=== PATIENT | male | born 1945 | race Caucasian/White ===

== ENCOUNTER 2020-05-19 07:11 | Outpatient (NON) | payer MEDICARE, OTHER, SELFPAY ==
[2020-05-19 23:09] LABS: SARS-CoV-2 RNA PCR Negative
== END 2020-05-19 07:12 ==
PROVIDERS: PCP Family Medicine; Visit Provider Family Medicine
DX: R53.83 Other fatigue (principal); Z20.828 Contact with and (suspected) exposure to other viral communicable diseases
CPT/HCPCS: 87635; C9803; U0003

== ENCOUNTER → 2020-05-24 11:34 | Outpatient (CLI) | payer MEDICARE, OTHER, SELFPAY ==
--- NOTE | ~2020-05-24 | XR_ITS ---
EXAMINATION: XR chest 2V EXAM DATE: 05/24/2020 12:12 INDICATION: Upper abdominal melanoma. TECHNIQUE: Frontal and lateral projections of the chest obtained and reviewed. Comparison is made to prior examination from 09/30/2012. FINDINGS: Sternotomy wires are present without findings to suggest sternal dehiscence. The lungs are clear. There are no pleural effusions. Borderline cardiomegaly. There is no pneumothorax suspected. The bones and soft tissues are unremarkable. IMPRESSION: Borderline cardiomegaly. Clear lungs. Reviewed, dictated and finalized at location A.
== END ==
PROVIDERS: PCP Family Medicine; Visit Provider Surgery
DX: C43.59 Malignant melanoma of other part of trunk (principal)
CPT/HCPCS: 71046

== ENCOUNTER → 2021-09-24 00:44 | Outpatient (CLI) | payer MEDICARE, OTHER, SELFPAY ==
[2021-09-25 10:58] LABS: SARS-CoV-2 RNA PCR Negative
== END ==
PROVIDERS: PCP Family Medicine; Visit Provider Family Medicine
DX: J02.9 Acute pharyngitis, unspecified (principal); Z20.822 Contact with and (suspected) exposure to COVID-19
CPT/HCPCS: C9803; U0003; U0005

== ENCOUNTER 2021-12-26 17:11 | Emergency (ER) | payer MEDICARE, OTHER, SELFPAY ==
--- NOTE | 2021-12-26 17:17 | ED.CHESTPAIN ---
HPI - Chest Pain General Chief Complaint: Chest Pain Stated Complaint: chest pain Time Seen by Provider: 12/26/21 17:30 Source: patient and RN notes reviewed Mode of arrival: ambulatory Limitations: no limitations History of Present Illness HPI narrative: 76-year-old male presents with midsternal chest pain that started today. He reports he has had a cold for several days and has been coughing. He occasionally feels short of breath. 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 He reports he had 5 stents placed last week, and is scheduled to be cardioverted for atrial fibrillation next week. Reports he has nitroglycerin for chest pain which he has not taken because this is not his typical chest pain. Patient feels that his chest pain is related to his upper respiratory infection and requests a breathing treatment. However patient is unable to use albuterol due to his recent stent placement. MD complaint: chest pain Related Data Home Medications Medication Instructions Recorded Confirmed aspirin 81 mg tablet,delayed 81 mg PO DAILY 07/21/19 10/17/21 release esomeprazole magnesium 20 mg 20 mg PO DAILY 07/21/19 10/17/21 capsule,delayed release multivitamin with minerals 1 tablet PO DAILY 07/21/19 10/17/21 olopatadine 0.1 % eye drops 1 drop EACH EYE BID 07/21/19 10/17/21 ranibizumab 0.3 mg/0.05 mL 0.3 mg INTRAVITRE Q28D 07/21/19 10/17/21 intravitreal solution for injection ranolazine 1,000 mg 1,000 mg PO Q12H 07/21/19 10/17/21 tablet,extended release,12 hr ezetimibe 10 mg tablet 10 mg PO DAILY 11/09/19 10/17/21 montelukast 10 mg tablet 10 mg PO QPM 11/09/19 10/17/21 alirocumab 75 mg/mL subcutaneous 75 mg SUBCUT . Q 2 weeks ml 10/12/20 10/17/21 pen injector cholecalciferol (vitamin D3) 125 5,000 unit PO DAILY tablet 10/12/20 10/17/21 mcg (5,000 unit) tablet ferrous gluconate 225 mg (27 mg 225 mg PO DAILY 10/12/20 10/17/21 iron) tablet fluticasone furoate 200 1 inh INHALATION DAILY 10/12/20 10/17/21 mcg-vilanterol 25 mcg/dose inhalation powder folic acid 400 mcg tablet 0.4 mg PO DAILY 10/12/20 10/17/21 insulin glargine 100 unit/mL (3 60 unit SUB-Q DAILY ml 10/12/20 10/17/21 mL) subcutaneous pen irbesartan 300 mg tablet 300 mg PO DAILY 10/12/20 10/17/21 furosemide 20 mg tablet 20 mg PO BID 02/12/21 10/17/21 isosorbide mononitrate 120 mg 120 mg PO DAILY tablet 02/12/21 10/17/21 tablet,extended release 24 hr metoprolol tartrate 25 mg tablet 12.5 mg PO BID tablet 02/12/21 10/17/21 bimatoprost 0.01 % eye drops 1 drp EACH EYE QPM 05/09/21 10/17/21 doxazosin 1 mg tablet 1 mg PO QHS 05/09/21 10/17/21 fluorouracil 5 % topical solution 1 applic TOPICAL BID 05/09/21 10/17/21 loteprednol etabonate 0.5 % eye 1 drp RIGHT EYE BID 05/09/21 10/17/21 drops,suspension timolol maleate 0.5 % eye drops 1 drp EACH EYE Q12H 05/09/21 10/17/21 dapagliflozin 5 mg tablet 5 mg PO DAILY 10/17/21 10/17/21 apixaban 5 mg tablet 5 mg PO BID 12/18/21 clopidogrel 75 mg tablet 75 mg PO DAILY 12/18/21 Allergies Allergy/AdvReac Type Severity Reaction Status Date / Time Ayncdgg-[id number] Reductase Allergy Unknown Verified 11/09/19 08:56 Inhibitor [[place]-Xum-Saz Reductase Inhibitor] Review of Systems Review of Systems: CONSTITUTIONAL: Reports malaise. Denies chills, sweats, or fever. ENT: Reports rhinorrhea, congestion. Denies sinus pain, otalgia or sore throat. CARDIOVASCULAR: Reports midsternal chest pain. Reports bilateral lower extremity edema RESPIRATORY: Reports cough and dyspnea. All systems reviewed & are unremarkable except as noted in HPI and below PMFSH Past Medical History Medical History (Updated 12/26/21 @ 18:01 by Prabha Gray NP) Actinic keratosis Anemia hemoglobin 11.0 on 05/10/2021 Atrial fibrillation (12/18/21) new onset atrial fibrillation after atherectomy and PCI of the RCA on 12/17/2021. BPH without obstruction/lower u
[2021-12-26 17:22] VITALS: BP 136/56; PULSE 95; RESP 20; TEMP 37.7; O2SAT 95
--- NOTE | 2021-12-26 17:28 | ECG_ITS ---
Measurements Intervals [place] Rate: 86 P: VT: 0 QRS: -38 QRSD: 140 T: 77 QT: 411 QTc: 493 Interpretive Statements ATRIAL FIBRILLATION LEFT AXIS DEVIATION [QRS AXIS < -30] NONSPECIFIC INTRAVENTRICULAR CONDUCTION DELAY ABNORMAL ECG NO PREVIOUS ECG AVAILABLE FOR COMPARISON Electronically Signed On 12-26-2021 18:16:56 CDT by Jaime Case M.D.
--- NOTE | 2021-12-26 17:47 | PC.NURSE ---
1746- Spouse did not want pt to have albuterol d/t recent stent placement, [employer] notified.
== END 2021-12-26 17:56 | disposition short-term general hospital (02) ==
PROVIDERS: Emergency Provider Nurse Practitioner; PCP Family Medicine
DX: R07.9 Chest pain, unspecified (principal); R94.31 Abnormal electrocardiogram [ECG] [EKG]; I48.91 Unspecified atrial fibrillation; N40.0 Benign prostatic hyperplasia without lower urinary tract symptoms; I12.9 Hypertensive chronic kidney disease with stage 1 through stage 4 chronic kidney disease, or unspecified chronic kidney disease; E11.22 Type 2 diabetes mellitus with diabetic chronic kidney disease; N18.32 Chronic kidney disease, stage 3b; Z79.4 Long term (current) use of insulin; K21.9 Gastro-esophageal reflux disease without esophagitis; D50.9 Iron deficiency anemia, unspecified; E78.2 Mixed hyperlipidemia; M19.90 Unspecified osteoarthritis, unspecified site; E66.01 Morbid (severe) obesity due to excess calories; Z68.41 Body mass index [BMI] 40.0-44.9, adult; I25.110 Atherosclerotic heart disease of native coronary artery with unstable angina pectoris; Z79.82 Long term (current) use of aspirin
CPT/HCPCS: 93005; 94640; 99213; G0463

== ENCOUNTER 2023-10-07 07:12 | Outpatient (RCR) | payer MEDICARE, OTHER, SELFPAY | END 2023-10-07 09:00 | disposition home or self-care (01) | LOC: ANHCPREHAB 07:12 | PROVIDERS: PCP Family Medicine | DX: I25.2 Old myocardial infarction (principal) | CPT/HCPCS: 99199; 93798 ==

== ENCOUNTER 2023-10-29 18:58 | Emergency (ER) | payer MEDICARE, OTHER, SELFPAY ==
[2023-10-29 19:22] VITALS: BP 142/66; PULSE 69; RESP 18; TEMP 36.3; O2SAT 99
[2023-10-29 19:23] LABS: Glucose Point of Care 128 mg/dl (65-105)
--- NOTE | 2023-10-29 19:29 | ED.GENADULT ---
HPI - General Adult General Chief complaint: Unspecified Stated complaint: low blood sugar Source: patient Mode of arrival: ambulatory Limitations: no limitations History of Present Illness HPI narrative: 78-year-old male with history of diabetes presented for complaint of low blood sugar at home. He states he changed out his FreeStyle sensor, which subsequently read blood glucose 53. He states that it has not been acting right since changing it out. He ate candy bars and drink some soda but was unable to have more readings. Tried to check BS at home using the finger stick but the was unable to get it to read, and then ran out of test strips. Patient currently denies any feelings of hyperglycemia and is aware of signs and symptoms to monitor. He denies chest pain, heart racing, dizziness, sweating, nausea or confusion. Per pt's monitor he runs 150-200s. Related Data Home Medications Medication Instructions Recorded Confirmed aspirin 81 mg tablet,delayed 81 mg PO DAILY 07/21/19 05/13/23 release (Adult Aspirin Regimen) multivitamin with minerals (Men's 1 tablet PO DAILY 07/21/19 05/13/23 One Daily tablet) olopatadine 0.1 % eye drops 1 drop ophthalmic (eye) BID 07/21/19 05/13/23 (Patanol) ranibizumab 0.3 mg/0.05 mL 0.3 mg intravitreal Q28D 07/21/19 05/13/23 intravitreal solution for injection (Lucentis) ezetimibe 10 mg tablet 10 mg PO DAILY 11/09/19 05/13/23 montelukast 10 mg tablet 10 mg PO QPM 11/09/19 05/13/23 alirocumab 75 mg/mL subcutaneous 75 mg subcut . Q 2 weeks 10/12/20 05/13/23 pen injector (Praluent Pen) cholecalciferol (vitamin D3) 125 5,000 unit PO DAILY 10/12/20 05/13/23 mcg (5,000 unit) tablet ferrous gluconate 225 mg (27 mg 225 mg PO DAILY 10/12/20 05/13/23 iron) tablet (Fergon) folic acid 400 mcg tablet 0.4 mg PO DAILY 10/12/20 05/13/23 insulin glargine 100 unit/mL (3 60 unit subcut DAILY 10/12/20 05/13/23 mL) subcutaneous pen (Basaglar KwikPen U-100 Insulin) isosorbide mononitrate 120 mg 120 mg PO DAILY 02/12/21 05/13/23 tablet,extended release 24 hr metoprolol tartrate 25 mg tablet 12.5 mg PO BID 02/12/21 05/13/23 doxazosin 1 mg tablet 1 mg PO QHS 05/09/21 05/13/23 fluorouracil 5 % topical solution 1 applic topical BID 05/09/21 05/13/23 loteprednol etabonate 0.5 % eye 1 drp RIGHT EYE BID 05/09/21 05/13/23 drops,suspension timolol maleate 0.5 % eye drops 1 drp ophthalmic (eye) Q12H 05/09/21 05/13/23 clopidogrel 75 mg tablet (Plavix) 75 mg PO DAILY 12/18/21 05/13/23 budesonide 0.5 mg/2 mL suspension 0.5 mg inhalation BID 03/18/22 05/13/23 for nebulization formoterol fumarate 20 mcg/2 mL 2 ml inhalation BID 03/18/22 05/13/23 solution for nebulization esomeprazole magnesium 20 mg 40 mg PO DAILY 09/19/22 05/13/23 capsule,delayed release (Nexium 24HR) insulin aspart U-100 100 unit/mL 16 unit subcut TID 09/19/22 05/13/23 (3 mL) subcutaneous pen (Novolog FlexPen U-100 Insulin aspart) amlodipine 2.5 mg tablet 2.5 mg PO DAILY 12/07/22 05/13/23 irbesartan 300 mg tablet 300 mg PO DAILY 05/13/23 05/13/23 ranolazine 1,000 mg 1,000 mg PO Q12H 05/13/23 05/13/23 tablet,extended release,12 hr Allergies Allergy/AdvReac Type Severity Reaction Status Date / Time [place]-BFP-JnO Reductase Allergy Unknown Verified 10/29/23 19:18 Inhibitor [Zvyslyg-Kta-Khj Reductase Inhibitor] Review of Systems Review of Systems: CONSTITUTIONAL: Denies body aches, fever, chills, or sweats. EYES: Denies visual changes, redness, or discharge. ENT: Denies rhinorrhea, congestion, sore throat, or otalgia. CARDIOVASCULAR: Denies chest pain, palpitations, or edema. RESPIRATORY: Denies cough or dyspnea. GASTROINTESTINAL: Denies abdominal pain, nausea, vomiting, or diarrhea. GENITOURINARY: Denies dysuria or hematuria. SKIN: Denies rash, itching, or wounds. MUSCULOSKELETAL: Denies back pain, joint pain, or myalgia. NEUROLOGIC: Denies headache, numbness, tingling, or weakness.
[2023-10-29 19:33] LABS: Glucose Point of Care 151 mg/dl (65-105)
== END 2023-10-29 19:40 | disposition home or self-care (01) ==
PROVIDERS: Emergency Provider Nurse Practitioner Family; PCP Family Medicine
DX: E11.9 Type 2 diabetes mellitus without complications (principal); I48.91 Unspecified atrial fibrillation; I13.10 Hypertensive heart and chronic kidney disease without heart failure, with stage 1 through stage 4 chronic kidney disease, or unspecified chronic kidney disease; E11.22 Type 2 diabetes mellitus with diabetic chronic kidney disease; N18.30 Chronic kidney disease, stage 3 unspecified; Z79.4 Long term (current) use of insulin; I25.110 Atherosclerotic heart disease of native coronary artery with unstable angina pectoris; K21.9 Gastro-esophageal reflux disease without esophagitis; D50.9 Iron deficiency anemia, unspecified; E78.2 Mixed hyperlipidemia; J45.909 Unspecified asthma, uncomplicated; E66.01 Morbid (severe) obesity due to excess calories; Z68.35 Body mass index [BMI] 35.0-35.9, adult; M15.9 Polyosteoarthritis, unspecified; Z86.16 Personal history of COVID-19; Z79.82 Long term (current) use of aspirin
CPT/HCPCS: 82948; 99212; G0463

== ENCOUNTER 2024-01-15 19:43 | Emergency (ER) | payer MEDICARE, OTHER, SELFPAY ==
--- NOTE | 2024-01-15 19:51 | ED.WOUNDLAC ---
HPI - Wound/Laceration General Chief Complaint: Wound/Laceration Stated Complaint: Head and Arm Injury Time Seen by Provider: 01/15/24 20:00 Source: patient, family, RN notes reviewed and old records reviewed Mode of arrival: ambulatory Limitations: no limitations History of Present Illness HPI narrative: 78-year-old male who presents to [facility] accompanied by with complaints of laceration to left eyebrow area and skin tears to his left elbow region after tripping on a hose and hitting a lounge chair, denies hitting head on any hard surface or any loss of consciousness. Patient is on blood thinners and has been unable to get bleeding stopped from laceration above left eye by lateral eyebrow area and skin tear areas.Patient also has some abrasions/avulsions on lateral upper cheek with no bleeding noted. Patient denies any syncopal episode prior to fall. Patient does admit to episodes of dizziness in the past few months has lost weight and thinks his medications may need adjusted. Onset (ago): minute(s) (prior to arrival) Location: face (above left eyebrow and to left lateral upper cheek) Extremity Location: Left: elbow (skin tears X2) Place: home Patient tetanus UTD: Yes Treatments prior to arrival: bandage Related Data Home Medications Medication Instructions Recorded Confirmed aspirin 81 mg tablet,delayed 81 mg PO DAILY 07/21/19 01/15/24 release (Adult Aspirin Regimen) multivitamin with minerals (Men's 1 tablet PO DAILY 07/21/19 01/15/24 One Daily tablet) olopatadine 0.1 % eye drops 1 drop ophthalmic (eye) BID 07/21/19 01/15/24 (Patanol) ranibizumab 0.3 mg/0.05 mL 0.3 mg intravitreal Q28D 07/21/19 01/15/24 intravitreal solution for injection (Lucentis) ezetimibe 10 mg tablet 10 mg PO DAILY 11/09/19 01/15/24 montelukast 10 mg tablet 10 mg PO QPM 11/09/19 01/15/24 alirocumab 75 mg/mL subcutaneous 75 mg subcut . Q 2 weeks 10/12/20 01/15/24 pen injector (Praluent Pen) cholecalciferol (vitamin D3) 125 5,000 unit PO DAILY 10/12/20 01/15/24 mcg (5,000 unit) tablet ferrous gluconate 225 mg (27 mg 225 mg PO DAILY 10/12/20 01/15/24 iron) tablet (Fergon) folic acid 400 mcg tablet 0.4 mg PO DAILY 10/12/20 01/15/24 insulin glargine 100 unit/mL (3 60 unit subcut DAILY 10/12/20 01/15/24 mL) subcutaneous pen (Basaglar KwikPen U-100 Insulin) isosorbide mononitrate 120 mg 120 mg PO DAILY 02/12/21 01/15/24 tablet,extended release 24 hr metoprolol tartrate 25 mg tablet 12.5 mg PO BID 02/12/21 01/15/24 doxazosin 1 mg tablet 1 mg PO QHS 05/09/21 01/15/24 fluorouracil 5 % topical solution 1 applic topical BID 05/09/21 01/15/24 loteprednol etabonate 0.5 % eye 1 drp RIGHT EYE BID 05/09/21 01/15/24 drops,suspension timolol maleate 0.5 % eye drops 1 drp ophthalmic (eye) Q12H 05/09/21 01/15/24 clopidogrel 75 mg tablet (Plavix) 75 mg PO DAILY 12/18/21 01/15/24 budesonide 0.5 mg/2 mL suspension 0.5 mg inhalation BID 03/18/22 01/15/24 for nebulization formoterol fumarate 20 mcg/2 mL 2 ml inhalation BID 03/18/22 01/15/24 solution for nebulization esomeprazole magnesium 20 mg 40 mg PO DAILY 09/19/22 01/15/24 capsule,delayed release (Nexium 24HR) insulin aspart U-100 100 unit/mL 16 unit subcut TID 09/19/22 01/15/24 (3 mL) subcutaneous pen (Novolog FlexPen U-100 Insulin aspart) amlodipine 2.5 mg tablet 2.5 mg PO DAILY 12/07/22 01/15/24 irbesartan 300 mg tablet 300 mg PO DAILY 05/13/23 01/15/24 ranolazine 1,000 mg 1,000 mg PO Q12H 05/13/23 01/15/24 tablet,extended release,12 hr Allergies Allergy/AdvReac Type Severity Reaction Status Date / Time Tul[place]w-YUI-XuS Reductase Allergy Muscle Verified 01/15/24 20:08 Inhibitor Spasms [Pplavwf-Ubi-Yfv Reductase Inhibitor] NSAIDS (Non-Steroidal AdvReac Abdominal Verified 01/15/24 20:08 Anti-Inflamma Pain Review of Systems Review of Systems: CONSTITUTIONAL: Denies fever, chills, or sweats. EYES: Denies visual changes, redness, or dischar
[2024-01-15 19:56] VITALS: BP 121/62; PULSE 65; RESP 18; TEMP 36.4; O2SAT 100
== END 2024-01-15 20:40 | disposition home or self-care (01) ==
PROVIDERS: Emergency Provider Registered Nurse; PCP Family Medicine
DX: S01.112A Laceration without foreign body of left eyelid and periocular area, initial encounter (principal); S51.012A Laceration without foreign body of left elbow, initial encounter; S01.402A Unspecified open wound of left cheek and temporomandibular area, initial encounter; W18.09XA Striking against other object with subsequent fall, initial encounter; I13.10 Hypertensive heart and chronic kidney disease without heart failure, with stage 1 through stage 4 chronic kidney disease, or unspecified chronic kidney disease; E11.22 Type 2 diabetes mellitus with diabetic chronic kidney disease; N18.30 Chronic kidney disease, stage 3 unspecified; Z79.4 Long term (current) use of insulin; I48.91 Unspecified atrial fibrillation; N40.0 Benign prostatic hyperplasia without lower urinary tract symptoms; K21.9 Gastro-esophageal reflux disease without esophagitis; D50.9 Iron deficiency anemia, unspecified; E78.2 Mixed hyperlipidemia; E66.01 Morbid (severe) obesity due to excess calories; Z68.34 Body mass index [BMI] 34.0-34.9, adult; G47.33 Obstructive sleep apnea (adult) (pediatric); M15.9 Polyosteoarthritis, unspecified; Z86.16 Personal history of COVID-19; Z79.82 Long term (current) use of aspirin; Z79.01 Long term (current) use of anticoagulants
CPT/HCPCS: 99213; G0463